=== PATIENT | female | born 1995 | race African-American/Black ===

== ENCOUNTER 2018-07-26 17:39 | Emergency (ER) | payer MEDICAID ==
[~2018-07-26] VITALS: Ht 160 cm; Wt 111.3 kg
[2018-07-26 17:52] VITALS: BP 110/85
--- NOTE | 2018-07-26 18:00 | NUR ---
PT PROVIDED URINE SAMPLE AND THEN AMBULATED BACK TO [facility].
[2018-07-26 18:26] LABS: BASOPHILS % (AUTO) 0.5 % (0.0-2.0); EOSINOPHILS # (AUTO) 0.3 K/uL (0-0.4); HEMATOCRIT 40.3 % (36-48); HEMOGLOBIN 13.3 g/dL (12.0-16.0); LYMPHOCYTES # (AUTO) 2.2 K/uL (2.5-16.5); LYMPHOCYTES % (AUTO) 24.3 % (20.5-51.1); MEAN CORPUSCULAR HEMOGLOBIN 27 pg (27-31); MEAN CORPUSCULAR HGB CONC 33 g/dL (33-37); MEAN CORPUSCULAR VOLUME 81.8 fL (80-94); MONOCYTES # (AUTO) 0.6 K/uL (0.8-1.0); MONOCYTES % (AUTO) 6.1 % (1.7-9.3); NEUTROPHILS % (AUTO) 66.1 % (42.2-75.2); PLATELET COUNT (AUTO) 168 K/uL (140-450); RED BLOOD CELL COUNT(AUTO) 4.92 MIL/uL (4.20-5.40); RED CELL DISTRIBUTION WIDTH 13.6 % (11.6-13.7); WHITE BLOOD COUNT (AUTO) 9.1 K/uL (4.8-10.8)
[2018-07-26 18:36] LABS: ANION GAP 14.7 (8-16); CARBON DIOXIDE 27.9 mmol/L (21-32); POTASSIUM 3.6 mmol/L (3.5-5.1)
[2018-07-26 18:43] LABS: ALBUMIN 4.5 g/dL (3.4-5.0); TOTAL BILIRUBIN 0.9 mg/dL (0.0-1.0)
--- NOTE | 2018-07-26 20:07 | NUR ---
PT BIB SELF C/O SOAR THROAT AND VOMITING. PT STATES THROAT HEAD, VOMITING, RHINORHEA, ABD PAIN AND DIARRHEA X3 DAYS. PT DESCRIBES ABD PAIN CONSTANT, CRAMPING, 7/10 PAIN; +TENDERNESS TO UPPER AND LOWER MEDIAL QUAD. PT DENIES TRAUMA OR INJURY. LBM: 07/26/18, WNL PER PT. PT ACTING APPROPRIATLY, SPEAKING IN CLEAR AND COMPLETE SENTENCES. PT IN GOWN, SAFETY PRECAUTIONS IN PLACE. PMH: GALLSTONES
[2018-07-26 20:33] LABS: APPEARANCE,URINE CLOUDY (CLEAR); BILIRUBIN,URINE 2+ (NEGATIVE); BLOOD, URINE 2+ (NEGATIVE); COLOR,URINE ORANGE (YELLOW); LEUKOCYTE ESTERASE ,URINE NEGATIVE (NEGATIVE); NITRITE, URINE POSITIVE (NEGATIVE); UGLUCOSE NEGATIVE (NEGATIVE)
[2018-07-26 20:38] LABS: WBC,URINE 0-5 /HPF (0-5)
[2018-07-26] MEDS ORDERED: ONDANSETRON 4 MG/2 ML VIAL IVP ONE (20:55)
[2018-07-26] MEDS ORDERED: NACL 0.9% 1,000 ML IV ONE (20:55)
--- NOTE | 2018-07-26 21:18 | NUR ---
PT TO CT VIA WHEELCHAIR BY TECH.
--- NOTE | 2018-07-26 21:32 | NUR ---
PT RETURNED FROM CT VIA WHEELCHAIR
--- NOTE | 2018-07-26 21:35 | NUR ---
PT AMBULATED TO BR W/ STEADY GATE.
[2018-07-26] MEDS ORDERED: cefTRIAXone 1,000 MG VIAL ONE (21:46)
--- NOTE | 2018-07-26 23:40 | NUR ---
US AT BEDSIDE.
[2018-07-27 00:57] VITALS: BP 110/85
--- NOTE | 2018-07-27 00:57 | NUR ---
Patient discharged with v/s stable. Written and verbal after care instructions given and explained. Patient alert, oriented and verbalized understanding of instructions. Ambulatory with steady gait. All questions addressed prior to discharge. ID band removed. Patient advised to follow up with PMD. Rx of PEPCID, KEFLEX given. Patient educated on indication of medication including possible reaction and side effects. Opportunity to ask questions provided and answered.
== END 2018-07-27 00:57 | disposition home or self-care (01) ==
LOC: MED 17:39
DX: N12 Tubulo-interstitial nephritis, not specified as acute or chronic (principal); K80.20 Calculus of gallbladder without cholecystitis without obstruction; R19.7 Diarrhea, unspecified
CPT/HCPCS: 36415; 74176; 76705; 80053; 81001; 81025; 83690; 85025; 87086; 96365; 96375; 99284; J0696; J2405; Q0092; J7030

== ENCOUNTER 2023-01-26 13:40 | Emergency (ER) | payer MEDICAID ==
[~2023-01-26] VITALS: Ht 160 cm; Wt 86.2 kg
[2023-01-26 13:58] VITALS: BP 129/63; PULSE 98; RESP 16; TEMP 97.7; O2SAT 100
[2023-01-26] MEDS ORDERED: CEPH500C16 PO (15:23)
[2023-01-26] MEDS ORDERED: IBUP-2213 PO (15:23)
[2023-01-26] MEDS ORDERED: SULF-59 PO (15:23)
== END 2023-01-26 15:36 | disposition home or self-care (01) ==
LOC: MED 13:40
DX: L03.116 Cellulitis of left lower limb (principal); R03.0 Elevated blood-pressure reading, without diagnosis of hypertension; Z79.899 Other long term (current) drug therapy
CPT/HCPCS: 99284